=== PATIENT | female | born 1990 | race Two or more races ===

== ENCOUNTER 2022-01-08 13:31 | Emergency (ER) | payer BC, OTHER ==
[~2022-01-08] VITALS: Ht 157.5 cm; Wt 63.5 kg
[2022-01-08] MEDS ORDERED: ACETAMINOPHEN 325 MG TAB PO ONE (14:30)
[2022-01-08 16:10] VITALS: BP 109/72
[2022-01-08] MEDS ORDERED: CYCL-837 PO (16:15)
[2022-01-08] MEDS ORDERED: IBUP800T27 PO (16:15)
== END 2022-01-08 16:51 | disposition home or self-care (01) ==
LOC: ER 13:31
DX: S16.1XXA Strain of muscle, fascia and tendon at neck level, initial encounter (principal); S46.912A Strain of unspecified muscle, fascia and tendon at shoulder and upper arm level, left arm, initial encounter; S39.012A Strain of muscle, fascia and tendon of lower back, initial encounter; S40.212A Abrasion of left shoulder, initial encounter; R51.9 Headache, unspecified; F12.10 Cannabis abuse, uncomplicated; Z88.0 Allergy status to penicillin; V43.52XA Car driver injured in collision with other type car in traffic accident, initial encounter; Y93.89 Activity, other specified; Y92.410 Unspecified street and highway as the place of occurrence of the external cause; Y99.8 Other external cause status
CPT/HCPCS: 70450; 72100; 72125; 73030

== ENCOUNTER 2022-12-22 16:38 | Emergency (ER) | payer BC ==
[~2022-12-22] VITALS: Ht 157.5 cm; Wt 64.9 kg
[~2022-12-22 16:38] MED LIST: CYCL-837 PO; IBUP800T27 PO
[2022-12-22 17:00] VITALS: BP 132/78
[2022-12-22 17:26] LABS: Urine Bacteria FEW /hpf (None Seen); Urine Blood 3+ /uL (Negative); Urine Specific Gravity 1.011 (1.001-1.035); Urine WBC 46 /hpf (0 - 5)
[2022-12-22] MEDS ORDERED: cefTRIAXone SOD 1,000 MG VL IM ONE (17:45)
[2022-12-22] MEDS ORDERED: PHENAZOPYRIDINE HCL 100 MG TAB PO ONE (17:45)
[2022-12-22] MEDS ORDERED: PHEN200T16 PO (17:50)
[2022-12-22] MEDS ORDERED: BACDST PO (17:50)
== END 2022-12-22 18:28 | disposition home or self-care (01) ==
LOC: ER 16:38
DX: N39.0 Urinary tract infection, site not specified (principal); F12.90 Cannabis use, unspecified, uncomplicated; Z88.0 Allergy status to penicillin
CPT/HCPCS: 81001; 81025; 96372; 99283; J0696

== ENCOUNTER 2025-03-02 08:14 | Emergency (ER) | payer BC ==
[~2025-03-02] VITALS: Ht 157.5 cm; Wt 61.5 kg
[~2025-03-02 08:14] MED LIST changes: +BACDST PO; +IBUP-1456 PO; -IBUP800T27 PO; +PHEN-922 PO
--- NOTE | 2025-03-02 08:55 | ED.PDOC ---
Musculoskeletal HPI Comments 34 year old female with no past medical history presents to the ED with a chief complaint of LT foot pain onset 10 days. Patient states she began experiencing LT foot pain that is currently radiating to LT leg, with a tingling sensation. She noticed pain worsen with ambulation. Denies fall injury trauma Denies numbness to the affected extremity denies fever chills nausea vomiting denies chest pain dizziness Chief Complaint: Lower Extremity Time Seen by MD: 08:40 Primary Care Provider: tabby Alcaraz Notes: Nurses Notes, Medications, Allergies Allergies: Coded Allergies: Penicillins (Verified Allergy, Unknown, 01/08/22) Home Meds Active Scripts Potassium Chloride (POTASSIUM CHLORIDE CR) 10 Meq Tb, 1 TAB PO BID for 5 Days, #10 TAB 0 Refills Prov:CADY LEBRON NP 03/02/25 Phenazopyridine HCl (Phenazopyridine Hydrochlo) 200 Mg Tab, 200 MG PO TID, #6 TAB Prov:NANDO FRY 12/22/22 Sulfamethoxazole W/Trimethopri (Bactrim Ds Tablet) 1 Tab Tb, 1 TAB PO BID for 10 Days, #20 TAB Prov:NANDO FRY 12/22/22 Ibuprofen (Ibuprofen) 800 Mg Tab, 1 TAB PO TID PRN, #30 TAB 0 Refills Prov:CARLEEN RIVERA 01/08/22 Cyclobenzaprine Hcl (Cyclobenzaprine Hcl) 5 Mg Tab, 1 TAB PO QPM, #14 TAB 0 Refills Prov:CARLEEN RIVERA 01/08/22 Information Source: Patient Mode of Arrival: Ambulatory Location: Left Extremity Location: Foot Timing: Days Prehospital treatment: None Severity: Moderate Able to Move Extremity: Yes Bear Weight: Fully Pain: Moderate Mechanism: Spontaneous Circumstances: Spontaneous Onset of Symptoms: Spontaneous Symptoms: Pain DVT Risk Factors: NONE Associated signs and symptoms: Foot pain Past Medical History PAST MEDICAL HISTORY: Denies Surgical History: Denies all surgeries SUBSTATION OPERATOR History: No Pertinent SUBSTATION OPERATOR History Family History Family History: Reviewed,noncontributory to illness Social History Smoker: Other Alcohol: Denies ETOH Use Drugs: Marijuana Lives In: Home All Other Systems: Reviewed and Negative (as per HPI) Physical Exam General Appearance: Normal HEENT: Normal ENT Inspection, Pharynx Normal, TMs Normal Neck: Full Range of Motion, Non-Tender, Normal, Normal Inspection Respiratory: Chest Non-Tender, Lungs Clear, No Accessory Muscle Use, No Respiratory Distress, Normal Breath Sounds Cardiovascular: No Murmur, No Gallop, Regular Rate/Rhythm Breast Exam: Deferred Gastrointestinal: No Organomegaly, Non Tender, No Pulsatile Mass, Normal Bowel Sounds, Soft Genitalia: Deferred Pelvic: Deferred Rectal: Deferred Extremities: No calf tenderness, Normal capillary refill, Normal inspection, Normal range of motion, Non-tender, No pedal edema Musculoskeletal : Apperance: Normal Neurologic: Alert, strategy execution consultant II-XII nml as Tested, No Motor Deficits, Normal Affect, Normal Mood, No Sensory Deficits Cerebellar Function: Normal Reflexes: Normal Skin: Dry, Normal Color, Warm Lymphatic: No Adenopathy Was a procedure done? Was a procedure done?: No Differential Diagnosis EXT Differential Diagnosis: Sprain, Arthritis, Other X-Ray, Labs, Meds, VS Vital Signs Date Time Temp Pulse Resp B/P (MAP) Pulse Ox O2 Delivery O2 Flow Rate FiO2 03/02/25 10:26 99.2 60 16 130/84 (99) 100 99.2 03/02/25 09:31 65 20 98 Room Air 03/02/25 09:31 98.1 65 20 127/83 (98) 98 98.1 03/02/25 08:20 99.2 70 16 136/86 (103) 99 99.2 Lab Test 03/02/25 08:49 03/02/25 08:37 Range/Units White Blood Count 7.9 4.4-10.8 10^3/uL Red Blood Count 4.29 4.0-5.20 10^6/uL Hemoglobin 13.2 12.2-16.2 g/dL Hematocrit 38.4 36.0-46.0 % Mean Corpuscular Volume 89.4 80.0-100.0 fL Mean Corpuscular Hemoglobin 30.7 28.0-32.0 pg Mean Corpuscular Hemoglobin Concent 34.3 32.0-36.0 g/dL Red Cell Distribution Width 13.4 11.8-14.3 % Platelet Count 231 140-450 10^3/uL Mean Platelet Volume 8.0 6.9-10.8 fL Neutrophils (%) (Auto) 52.2 37.0-80.0 % Lymphocytes (%) (Auto) 40.5 10.0-50.0 % Monocytes (%) (Auto) 6.2 0.0-12.0 % Eosinophils (%) (Auto) 0.6 0.0-7.0 % Basophils (%) (Auto) 0.5 0.0-2.0 % Neutrophils # (Auto) 4.1 1.6-8.6 10 ^3/uL Lymphocytes # (Auto) 3.2 0.4-5.4 10 ^3/uL Monocytes # (Auto) 0.5 0-1.3 10 ^3/uL Eosinophils # (Auto) 0 0-0.8 10 ^3/uL Basophils # (Auto) 0 0-0.2 10 ^3/uL Nucleated Red Blood Cells 0.0 % Sodium Level 140 136-145 mmol/L Potassium Level 3.0 L 3.5-5.1 mmol/L Chloride Level 105 98-107 mmol/L Carbon Dioxide Level 25 20-31 mmol/L Anion Gap 10 5-15 Blood Urea Nitrogen 8 L 9-23 mg/dL Creatinine 0.70 0.550-1.02 mg/dL Glomerular Filtration Rate Calc 118 >90 mL/min BUN/Creatinine Ratio 11.4 10.0-20.0 Serum Glucose 98 74-106 mg/dL Calcium Level 10.0 8.7-10.4 mg/dL Urine Color Colorless Yellow Urine Clarity Clear Clear Urine pH 6.0 5.0-9.0 Urine Specific [place] 1.008 1.001-1.035 Urine Protein Negative Negative Urine Ketones Negative Negative Urine Blood Negative Negative /uL Urine Nitrite Negative Negative Urine Bilirubin Negative Negative Urine Urobilinogen Normal Negative mg/dL Urine Leukocyte Esterase Negative Negative /uL Urine RBC 1 0 - 4 /hpf Urine Microscopic WBC 1 0-5 /HPF Urine Squamous Epithelial Cells Few <5 /hpf Urine Bacteria Few H None Seen /hpf Urine Glucose Normal Normal mg/dL Urine Test Negative Negative Current Medications Medications (Trade) Dose Ordered Sig/Tiffanie Route Start Time Stop Time Status Last Admin Potassium Chloride (Klor-Con Tablet) 60 meq ONCE ONCE PO 03/02/25 10:15 03/02/25 10:16 DC 03/02/25 10:[address] [address] Ph: [phone] DIAGNOSTIC IMAGING Diagnostic Imaging Report : [id number] Signed PATIENT: ALEXIS LOUIS ACCT: [id number] UNIT: [id number] : 1990 LOC: ER ROOM / BED: / AGE / SEX: 34 / F ADM STATUS: REG ER SERVICE 1 ORDERING PHYSICIAN: CADY LEBRON NP PROCEDURE(s): BLDVT - BiLat Lower DVT REASON: R/o DVT ORDER NUMBER(s): [id number], ACCESSION NUMBER(s): [id number] Bilateral lower extremity venous duplex Clinical History: pain Comparison: None Technique: Duplex Doppler evaluation of the deep venous systems of both lower extremities from the common femoral veins to the popliteal veins including color Doppler and spectral/pulsed waveform analysis was performed. Findings: RIGHT SIDE: The common femoral vein demonstrates appropriate compressibility and waveform variability. There is compressibility/patency of the great saphenous vein at the proximal thigh. The femoral vein demonstrates appropriate compressibility and waveform variability. The deep femoral vein demonstrates appropriate compressibility and waveform variability. The popliteal vein demonstrates appropriate compressibility and waveform variability. There is normal compressibility at the tibioperoneal trunk. LEFT SIDE: The common femoral vein demonstrates appropriate compressibility and waveform variability. There is compressibility/patency of the great saphenous vein at the proximal thigh. The femoral vein demonstrates appropriate compressibility and waveform variability. The deep femoral vein demonstrates appropriate compressibility and waveform variability. The popliteal vein demonstrates appropriate compressibility and waveform variability. There is normal compressibility at the tibioperoneal trunk. Impression: No right or left femoropopliteal venous thrombosis. ATED BY: PITO CARDOZO MD DICTATED DATE/TIME: 03/02/25908 SIGNED BY: PITO CARDOZO MD SIGNED DATE/TIME: 03/02/25908 CC: X-Ray, Labs, Meds, VS Comment 34 year old female with no past medical history presents to the ED with a chief complaint of LT foot pain onset 10 days. Patient arrives alert and oriented, ABC's intact, afebrile, vital signs stable, saturating well in room air labs were ordered. CBC was ordered to exclude anemia, blood loss, or infection. BMP was ordered to exclude electrolyte abnormalities, renal failure, dehydration, hyperglycemia Urinalysis was ordered to rule out UTI or hematuria. PREGUA Diagnostic imaging ordered by me and results interpreted by radiology : US BiLat Lower DVT: Impression: No right or left femoropopliteal venous thrombosis. Labs in the ED showed L 3.0. Patient was given: Potassium Chloride 60 meq PO. Tolerated medications with no adverse reaction. Consideration of admission (observation or admission): I considered escalation of care to admission for this patient, however given the reassuring workup, the patient is safe for outpatient management. K 3.0. No CP/Nor SOB. Patient is stable for discharge at this time. External notes reviewed. Test results and diagnostic imaging interpreted. All diagnostic findings, discharge care, education and instructions provided Follow-up with PCP in 2 to 3 days. Return in 7 days for repeat labs if unable to schedule apt with PCP. Patient verbalized understanding and agreed to treatment plan Vital signs stable, afebrile, no acute distress noted Patient ambulatory with strong steady gait Advised to return precautions for any new or worsening symptoms, return to ER immediately for re-evaluation Patient is aware that the purpose of this visit was for an acute medical emergency requiring emergent stabilization. Chronic conditions, including malignancies have not been ruled out. Patient is instructed to follow up with PCP as directed and discharge instructions for continued care and workup. If unable to arrange follow-up, patient is to return to the emergency department for reassessment. Patient (parent or legal guardian if applicable) was given verbal and written discharge instructions and acknowledges understanding. Additional MDM Review of External, Non-ED records: External records reviewed. Discussion with independent historian (EMS, family) history obtained from the patient/parents (if applicable) at bedside Chronic conditions affecting care: None Social determinants of health affecting care: None Time of 1ST Reevaluation: 09:10 Reevaluation 1ST: Improved Patient Education/Counseling: Diagnosis, Treatment Family Education/Counseling: No Family Present Departure 1 Departure Time of Disposition: 10:58 Impression: Primary Impression: Hypokalemia Disposition: 01 HOME / SELF CARE / HOMELESS Condition: Fair e-Prescriptions Potassium Chloride (POTASSIUM CHLORIDE CR) 10 Meq Tb 1 TAB PO BID for 5 Days, #10 TAB 0 Refills Prov: CADY LEBRON CARDIOVASCULAR TECH 03/02/25 Critical Care Note Critical Care Time?: No Stability Stability form required: No Heart Score Heart Score: Heart Score Response (Comments) Value History N/A 0 EKG N/A 0 Age N/A 0 Risk Factors N/A 0 Troponin N/A 0 Total 0 I personally scribed for CADY LEBRON NP ([employer] Physical) on 03/02/25 at 08:55. Electronically submitted by Samantha Haro ([email or web address]). I personally scribed for CADY LEBRON NP ([employer] Physical) on 03/02/25 at 09:58. Electronically submitted by Samantha Haro ([email or web address]). I personally scribed for CADY LEBRON NP ([employer] Physical) on 03/02/25 at 09:59. Electronically submitted by Samantha Haro ([email or web address]). I personally scribed for CADY LEBRON NP ([employer] Physical) on 03/02/25 at 11:04. Electronically submitted by Samantha Haro ([email or web address]). CADY LEBRON NP Mar 02, 2025 08:55
--- NOTE | 2025-03-02 09:11 | DVH ---
Bilateral lower extremity venous duplex Clinical History: pain Comparison: None Technique: Duplex Doppler evaluation of the deep venous systems of both lower extremities from the common femora l veins to the popliteal veins including color Doppler and spectral/pulsed waveform analysis was perf ormed. Findings: RIGHT SIDE: The common femoral vein demonstrates appropriate compressibility and waveform variability. There is compressibility/patency of the great saphenous vein at the proximal thigh. The femoral vein demonstrates appropriate compressibility and waveform variability. The deep femoral vein demonstrates appropriate compressibility and waveform variability. The popliteal vein demonstrates appropriate compressibility and waveform variability. There is normal compressibility at the tibioperoneal trunk. LEFT SIDE: The common femoral vein demonstrates appropriate compressibility and waveform variability. There is compressibility/patency of the great saphenous vein at the proximal thigh. The femoral vein demonstrates appropriate compressibility and waveform variability. The deep femoral vein demonstrates appropriate compressibility and waveform variability. The popliteal vein demonstrates appropriate compressibility and waveform variability. There is normal compressibility at the tibioperoneal trunk. Impression: No right or left femoropopliteal venous thrombosis.
[2025-03-02 09:16] LABS: Chloride 105 mmol/L (98-107); Sodium 140 mmol/L (136-145)
[2025-03-02 09:17] LABS: Anion Gap 10 (5-15); Calcium 10.0 mg/dL (8.7-10.4); Carbon Dioxide 25 mmol/L (20-31)
[2025-03-02 09:18] LABS: Hematocrit 38.4 % (36.0-46.0); Hemoglobin 13.2 g/dL (12.2-16.2); Mean Corpuscular Hemoglobin 30.7 pg (28.0-32.0); Mean Corpuscular Volume 89.4 fL (80.0-100.0); Nucleated Red Blood Cells % 0.0 %; Potassium 3.0 mmol/L (3.5-5.1)
[2025-03-02 09:22] LABS: BUN/Creatinine Ratio 11.4 (10.0-20.0); Glucose 98 mg/dL (74-106)
[2025-03-02 09:26] LABS: Blood Urea Nitrogen 8 mg/dL (9-23)
[2025-03-02 10:02] LABS: Urine Protein, UAD Negative (Negative)
[2025-03-02] MEDS: POTASSIUM CHL 20 Meq TABLET PO ONE (10:20)
[2025-03-02 10:26] VITALS: BP 130/84; PULSE 60; RESP 16; TEMP 99.2; O2SAT 100
[2025-03-02] MEDS ORDERED: POTA-36 PO (10:58)
== END 2025-03-02 11:03 | disposition home or self-care (01) ==
LOC: ER 08:14
DX: E87.6 Hypokalemia (principal); F17.200 Nicotine dependence, unspecified, uncomplicated; Z79.899 Other long term (current) drug therapy; Z88.0 Allergy status to penicillin
CPT/HCPCS: 36415; 80048; 81001; 81025; 85025; 93970